=== PATIENT | female | born 1995 | race Caucasian/White ===

== ENCOUNTER 2022-06-16 15:22 | Emergency (ER) | payer OTHER ==
[~2022-06-16] VITALS: Ht 172.7 cm; Wt 70.3 kg
[2022-06-16 17:06] VITALS: BP 134/85
== END 2022-06-16 17:16 | disposition home or self-care (01) | DRG 563 ==
LOC: ED 15:22
PROC: 2W3SX1Z Immobilization of Right Foot using Splint (ICD-10-PCS; principal; 2022-06-16)
DX: S82.891A Other fracture of right lower leg, initial encounter for closed fracture (principal); V18.2XXA Unspecified pedal cyclist injured in noncollision transport accident in nontraffic accident, initial encounter